=== PATIENT | male | born 1965 | race Two or more races ===

== ENCOUNTER 2021-11-26 20:06 | Emergency (ER) | payer OTHER, SELFPAY ==
[~2021-11-26] VITALS: Ht 160 cm; Wt 83.9 kg
[2021-11-26 20:23] VITALS: BP_SYST 147
[2021-11-26 20:43] LABS: BASOPHILS % (AUTO) 0.5 % (0.0-2.0); EOSINOPHILS # (AUTO) 0.1 K/uL (0.0-0.4); EOSINOPHILS % (AUTO) 1.4 % (0.0-4.0); HEMATOCRIT 40.9 % (36-54); HEMOGLOBIN 14.5 g/dL (14.0-18.0); LYMPHOCYTES # (AUTO) 2.9 K/uL (1.0-5.5); MEAN CORPUSCULAR HEMOGLOBIN 31 pg (27-31); MEAN CORPUSCULAR HGB CONC 35 % (32-36); MEAN CORPUSCULAR VOLUME 86 fL (79.0-98.0); MONOCYTES # (AUTO) 0.5 K/uL (0.0-1.0); MONOCYTES % (AUTO) 7.4 % (1.7-9.3); NEUTROPHILS # (AUTO) 3.6 K/uL (1.8-7.7); NEUTROPHILS % (AUTO) 50.7 % (40.0-70.0); PLATELET COUNT (AUTO) 179 K/uL (130-430); RED BLOOD CELL COUNT(AUTO) 4.74 MIL/uL (4.2-6.2); RED CELL DISTRIBUTION WIDTH 13.5 % (9.0-15.0); WHITE BLOOD COUNT (AUTO) 7.1 K/uL (4.8-10.8)
[2021-11-26 21:07] LABS: CALCIUM 8.9 mg/dL (8.4-11.0); CREATININE 0.93 mg/dL (0.55-1.30); POTASSIUM 4.4 mmol/L (3.5-5.1)
[2021-11-26 21:14] LABS: ALBUMIN 3.7 g/dL (3.4-4.8); TOTAL BILIRUBIN 0.6 mg/dL (0.0-1.0)
--- NOTE | 2021-11-26 21:30 | NUR ---
Dr. Campoverde assessing pt.
--- NOTE | 2021-11-26 21:35 | NUR ---
Patient to bed 1
--- NOTE | 2021-11-26 21:35 | NUR ---
Pt report received. Pt BIB ALS ambulance with 20 GA PIV to RAC. Pt placed to gown and telemetry monitor. Pt states that while gardening he experienced sudden onset, non-radiating and substernal C/P with exertion. Pt AAOx4, VSS, NAD, denies c/o C/P or SOB. Addendum: 11/27/21 at 0016 by SHANIA HR 58, baseline for pt. Pt athletic.
--- NOTE | 2021-11-26 23:00 | NUR ---
Pt denies c/o C/P or discomfort. No needs verbalized at this time.
--- NOTE | 2021-11-27 00:20 | NUR ---
Specimen for COVID antigen collected and sent to lab.
--- NOTE | 2021-11-27 00:50 | NUR ---
Pt up to restroom. Denies c/o C/P or SOB, ambulates with steady gait. Pt reconnected to traffic monitor specialist upon return to bed.
--- NOTE | 2021-11-27 02:00 | NUR ---
Pt denies c/o C/P or SOB, no needs verbalized at this time. VSS, NAD.
[2021-11-27 04:20] VITALS: BP_SYST 113
--- NOTE | 2021-11-27 04:20 | NUR ---
Patient to be transferred to [facility]. Is being transferred due to higher level of care. Receiving facility has accepting physician and available space. ER physician has signed transfer form. Patient or responsible constitution party has agreed to transfer and signed form. Patient belongings inventoried and will be sent with patient. Copy of nursing notes, lab reports, EKG, Physicians Orders and X-rays to be sent with patient. Multiple unsuccessful attempts to call report from number provided by [facility] ([phone]). Pt leaves ER via stretcher in c/o ALS ambulance in stable condition.
--- NOTE | 2021-11-27 05:10 | NUR ---
Multiple unsuccessful attempts to give report to receiving RN (Hema) at [facility] by number provided from [facility]: [phone]. Phone rings with no answer. Called [facility] to reconfirm number and verified as the same. Instructed ALS ambulance to have JARRED Garrido call [facility] to receive report.
== END 2021-11-27 04:20 | disposition short-term general hospital (02) ==
LOC: SED 20:06
DX: I25.9 Chronic ischemic heart disease, unspecified (principal); Z20.822 Contact with and (suspected) exposure to COVID-19
CPT/HCPCS: 36415; 71045; 80053; 83880; 84484; 85025; 93005; 99285